=== PATIENT | female | born 1990 | race Hispanic/Latino ===

== ENCOUNTER 2023-05-18 18:33 | Emergency (ER) | payer BC ==
[~2023-05-18] VITALS: Ht 149.9 cm; Wt 75.3 kg
[~2023-05-18 18:33] MED LIST: PREN1COM14 PO
[2023-05-18] MEDS ORDERED: KETOROLAC 60 MG VIAL (30MG/ML) IM ONE (22:00)
[2023-05-18] MEDS ORDERED: DEXAMETHASONE SOD PHOSPHATE 4 MG/ML 1ML VIAL IV ONE (22:00)
[2023-05-18] MEDS ORDERED: CYCLOBENZAPRINE HCL 10 MG TABLET PO ONE (22:00)
[2023-05-18] MEDS ORDERED: HYDROCODONE/ACETAMINOPHEN 10/325 MG TAB PO ONE (22:00)
[2023-05-18] MEDS ORDERED: METH4TAB3 PO (23:00)
[2023-05-18] MEDS ORDERED: ACETAMINOPHEN WITH CODEINE 1 TAB TAB PO ONE (23:00)
[2023-05-18] MEDS ORDERED: CYCL-309 PO (23:00)
[2023-05-18] MEDS ORDERED: IBUP-2077 PO (23:00)
[2023-05-18 23:18] VITALS: BP 133/74; PULSE 67; RESP 18; O2SAT 98
== END 2023-05-19 00:18 | disposition home or self-care (01) ==
LOC: EDH 18:33
DX: S39.012A Strain of muscle, fascia and tendon of lower back, initial encounter (principal); X58.XXXA Exposure to other specified factors, initial encounter; Y93.89 Activity, other specified; Y92.89 Other specified places as the place of occurrence of the external cause; Y99.8 Other external cause status
CPT/HCPCS: 99284; 96374; 96372; J1100; J1885

== ENCOUNTER → 2023-09-16 | Outpatient (CLI) | payer OTHER ==
[~2023-09-16] MED LIST changes: +CYCL-309 PO; +IBUP-2077 PO; +METH4TAB3 PO
== END | disposition home or self-care (01) ==
LOC: RAH 14:22
PROVIDERS: ATTEND Family Medicine
DX: M51.16 Intervertebral disc disorders with radiculopathy, lumbar region (principal); M62.830 Muscle spasm of back
CPT/HCPCS: 72148

== ENCOUNTER → 2024-05-24 | Outpatient (CLI) | payer OTHER ==
--- NOTE | 2024-05-25 09:32 | HMCIMG ---
PROCEDURE: MAMMO DX BILATERAL HISTORY: Left breast lump COMPARISON: None TECHNIQUE: Bilateral digital diagnostic mammogram with CAD was performed. No additional views were obtained. FINDINGS: The breasts are heterogeneously dense, which may obscure small masses. If there is clinical palpable lump, ultrasound may be performed per referring physician request. There is no evidence of a dominant mass, or suspicious microcalcification. There is no evidence of nipple retraction or skin thickening. IMPRESSION: 1. No dominant mass is seen to suggest a malignant process. If there is clinical palpable lump, ultrasound may be performed per referring physician request BI-RADS: CATEGORY 2: BENIGN FINDINGS Recommend monthly self breast exam as well as annual clinical examination. A negative x-ray should not delay biopsy if a dominant or clinically suspicious mass is present, since 8-10% of cancers are not identified by mammography. Dense breasts particularly, may obscure an underlying neoplasm. Some of these may be detected clinically and therefore, clinical examination is an essential part of breast evaluation.
--- NOTE | 2024-05-25 10:08 | HMCIMG ---
US BREAST COMPLETE UNILATERAL REASON: UNSPECIFIED LUMP IN LT BREAST. COMPARISON: Mammogram from same day TECHNIQUE: Left breast ultrasound study was performed. FINDINGS: No evidence of cystic or hypoechoic mass is seen. Dense fibroglandular tissue is seen. IMPRESSION: No cystic or hypoechoic mass is seen. CATEGORY 2: BENIGN FINDINGS Recommend monthly self breast exam as well as annual clinical examination.
== END | disposition home or self-care (01) ==
LOC: RAH 13:43
PROVIDERS: ATTEND Family Medicine
DX: R92.333 Mammographic heterogeneous density, bilateral breasts (principal); R92.322 Mammographic fibroglandular density, left breast; N63.42 Unspecified lump in left breast, subareolar; N64.4 Mastodynia
CPT/HCPCS: 76641; 77066